=== PATIENT | female | born 1955 | race Caucasian/White ===

== ENCOUNTER 2018-08-31 17:04 | Emergency (ER) | payer OTHER ==
[2018-08-31] MEDS: ACETAMINOPHEN 325 MG TAB PO (17:39)
== END 2018-08-31 18:50 | disposition home or self-care (01) ==
LOC: E/R 17:04
DX: I10 Essential (primary) hypertension (principal); J32.9 Chronic sinusitis, unspecified
CPT/HCPCS: 70450; 99284-25

== ENCOUNTER 2019-01-27 20:24 | Emergency (ER) | payer OTHER ==
[2019-01-27] MEDS: ONDANSETRON (ODT) 4 MG TAB ODT (22:29)
[2019-01-27] MEDS: DEXAMETHASONE 10 MG/ML 1 ML INJ IM (22:29)
[2019-01-27] MEDS: FAMOTIDINE 20 MG TAB PO (22:30)
[2019-01-27] MEDS: morphine 4 MG/ML VIAL IM (22:30)
== END 2019-01-27 23:05 | disposition home or self-care (01) ==
LOC: FTE 23:05
DX: I01.1 Acute rheumatic endocarditis (principal); E03.9 Hypothyroidism, unspecified; I10 Essential (primary) hypertension
CPT/HCPCS: 96372; 99284-25